=== PATIENT | female | born 1950 | race Caucasian/White ===

== ENCOUNTER 2020-06-22 14:21 | IRF | payer MEDICARE, MEDICAID, SELFPAY ==
--- NOTE | ~2020-06-22 | XR_ITS ---
EXAMINATION: XR barium swallow modified DATE: 07/01/2020 15:31 INDICATION: Dysphagia. TECHNIQUE: The patient was given barium-containing material of multiple consistencies to swallow by nba barrera speech pathologist while I performed fluoroscopy. Dose-area product was 2.965 Gy-cm2. 1.5 minutes fluoroscopy time FINDINGS: Oral Stage: Within functional limits Pharyngeal Phase: Laryngeal penetration with 3 mm thin liquid. Mild silent aspiration, no cough resp onse. Cervical/Esophageal Stage: Within functional limits IMPRESSION: Modified esophagram findings as above. Please refer to the speech [facility]. Reviewed, dictated and finalized at [facility]. Reviewed, dictated and finalized at [facility]. IMPRESSION: Modified esophagram findings as above. Please refer to the speech t herapy report for specific recommendations.
[2020-06-22 14:21] VITALS: BP 137/60; PULSE 90; RESP 20; TEMP 36.8; O2SAT 94
--- NOTE | 2020-06-22 14:47 | PC.NURSE ---
This patient, Maryjane Iglesias, was admitted to [facility] Room 224-02. Patient/family oriented to hospital policies and general routines including ID bracelet, bed and alarms, visiting hours, pain management, procedures, bathroom and other care routines, personal items, smoking policy, room service/diet, and visiting hours. Valuables list has been completed. Information on how to activate the Rapid Response Team has been discussed. Patient/Family are encouraged to report perceived risks to care and to ask questions if they do not understand what they are told or what they should do.
[2020-06-22] MEDS: dilTIAZem HCL TAB 30 MG, dilTIAZem HCL TAB 60 MG 90 MG PO ×2 (17:43→20:43)
[2020-06-22] MEDS: ATORVASTATIN 20 MG TABLET PO (20:43)
[2020-06-22 22:00] VITALS: BP 135/54; PULSE 94; RESP 16; TEMP 36.1; O2SAT 96
[2020-06-23] VITALS (13 sets, daily range): BP systolic 112–146; BP diastolic 43–64; PULSE 74–102; RESP 16–20; TEMP 36.2–36.7; O2SAT 96–100
[2020-06-23 01:13] LABS: Add Urine Microscopic? YES; Appearance Urine Clear (Clear); Bacteria Urine Trace /hpf; Bilirubin Urine Negative (Negative); Blood Urine 2+ (Negative); Color Urine Yellow (Yellow); Glucose Urine UA Negative (Negative); Ketones Urine Negative (Negative); Leukocyte Esterase Ur Negative LEU/UL (Negative); Mucus Urine Rare /lpf; Nitrate Urine Negative (Negative); Protein Urine 1+ mg/dL (Negative); RBC Urine >75 /hpf (0-2); Specific Grav Ur 1.014 (1.001-1.035); Urobilinogen Urine Negative mg/dL (<2.0)
[2020-06-23 05:43] LABS: Basophils Percent Auto 0.6 % (0.2-1.2); Eosinophils Absolute Auto 0.3 K/mm3 (0-0.3); Eosinophils Percent Auto 5.3 % (0-4.4); Hematocrit 22.9 % (37.0-47.0); Immature Granulocyte Absolute 0.04 K/mm3 (0.00-0.031); Immature Granulocyte Percent A 0.6 % (0-0.5); Lymphocytes Absolute Auto 0.97 K/mm3 (0.9-3.2); Lymphocytes Percent Auto 15.6 % (18.3-44.2); Mean Corpuscular HGB Conc 30.1 g/dl (32-36); Mean Corpuscular Volume 79.5 fl (80-100); Mean Platelet Volume 10.5 fl (7.4-10.4); Monocytes Absolute Auto 0.5 K/mm3 (0.1-0.6); Neutrophils Absolute Auto 4.4 K/mm3 (1.3-6.7); Neutrophils Percent Auto 69.9 % (45.5-73.1); Platelet Count Result 563 k/mm3 (150-375); Red Blood Count 2.88 M/mm3 (4.2-5.4); White Blood Count 6.2 K/mm3 (4.5-10.0)
[2020-06-23 05:57] LABS: Potassium 3.5 mmol/L (3.4-5.0)
[2020-06-23 06:00] LABS: Anion Gap 4 mmol/L (8-16); Blood Urea Nitrogen 11 mg/dL (7-17); Calcium 8.5 mg/dL (8.4-10.2); Carbon Dioxide 32 mmol/L (22-30); Chloride 100 mmol/L (98-107); Cholesterol 106 mg/dL (0-200); Estimated Glomerular Filt Rate > 60; Glucose 98 mg/dL (65-105); HDL Direct 41 mg/dL; Sodium 136 mmol/L (137-145); Triglycerides 76 mg/dL (<150)
[2020-06-23 06:03] LABS: Hemoglobin 6.9 g/dL (12.0-15.0)
[2020-06-23 06:09] LABS: LDL Cholesterol Direct 43 mg/dL
[2020-06-23] MEDS: ACIDOPHILUS/BULGARICUS CHEWABLE TABLET 1 TABLET PO (09:54)
[2020-06-23] MEDS: PANTOPRAZOLE 40 MG TABLET PO (09:54)
[2020-06-23] MEDS: dilTIAZem HCL TAB 30 MG, dilTIAZem HCL TAB 60 MG 90 MG PO ×4 (09:55→21:06)
--- NOTE | 2020-06-23 10:32 | WPDREHABHP ---
H&P: HPI History of Present Illness Date/Time: 06/23/20 10:32 Chief complaint: CVA Narrative: Maryjane Iglesias is a 70 year old femaleHISTORY OF PRESENT ILLNESS: The patient's primary rehab impairment category is Stroke[] The etiologic diagnosis is acute left MCA ischemic stroke [] I saw this patient [id number] on on June 23, 2020 at 9:00 a.m.[] The patient is a 70 years old female with a past medical history of recent stroke in November of 2019, hypertension, hyperlipidemia, COPD, and GI angiodysplasia ES who presented to [facility] Emergency Room on June 09, 2020 with dysarthria, right-sided weakness, and right-sided facial droop. The patient's granddaughter found her at 10:15 a.m. on June 09, 2020 EMS was contacted and she was taken to [facility] in the emergency department her NIHSS was 15 CT scan of the head demonstrated mg at M2 bifurcation hyper density as well as a left insular hypodensity with positive low-lying cerebellar tonsils. No bleed. CTA revealed occlusion of the left middle cerebral artery bifurcation. Patient did not receive tPA as her last known well was October 13, 2030 on June 08, 2020. A thrombectomy was performed during which a left GA occlusion was identified and thrombectomy was successful after 3 passes PT 1 C1-2 see flow. TTE with an ejection fraction of 58%, no shunt or thrombus. Patient patient had a loop recorder placed on discharge. The patient was given ticagrelor x2 and then decision was made to proceed only with aspirin 81 mg daily due to previous GI bleed. 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 On June 17, 2020 a capsule old study was performed. On June 20, 2020 a single balloon and toes copy was performed and showed a normal esophagus, stomach, and duodenum, as well as, multiple recently bleeding inject aces in the jejunum that were treated with our gone beam coagulation and hemostatic clip was placed. Gastroenterology signed off. Patient developed a urinary tract infection was placed on ceftriaxone completed on June 20, 2020. The patient outpatient computer engineering technologist was consulted regarding her hypogammaglobulinemia and IV Ig was discontinued as it is a possible contributor to stroke. Physical examination continues to reveal decreased gross motor control, impaired balance, decreased safety awareness, and right-sided weakness. She will not discharge on anticoagulation other than aspirin due to her GI bleed. The patient has not traveled outside the [place] or had contact with someone who is ill that is travel outside the [place] in the past 21 days. The patient has not traveled to an area of the [place] that experiencing known transmission of the Coronavirus and has not had close personal contact with anyone that has. The patient does not have a fever. The patient experience possible aspiration pneumonia during her modified barium swallow she completed antibiotics for this and was tested for COVID-19 on June 09, 2020 and the results were negative. Therapy was initiated at the acute care facility and the patient transferred to us from from [facility] on June 21, 2020. The patient has had major surgeries in the 100 days prior to admission. The had falls in the past year. The patient had [no] falls with injury in the past year. PAST MEDICAL HISTORY: Hypertension, hyperlipidemia, GI angiodysplasia as, prior stroke with residual right-sided weakness, COPD, and hypogammaglobulinemia. Lives with son. PAST SURGICAL HISTORY: Five endoscopic scopes in the last 5 months for recurrent GI bleeds, cauterized action of GI bleed, and clot removal during this hospitalization. Social history the patient lives in a 2 story home with her son there are 4 steps to enter patient's bedroom and bathroom is on the main level. Son does the la
[2020-06-23] MEDS: ATORVASTATIN 20 MG TABLET PO (21:07)
[2020-06-24 06:00] VITALS: BP 121/51; PULSE 79; RESP 20; TEMP 36.8; O2SAT 100
[2020-06-24] MEDS: ACIDOPHILUS/BULGARICUS CHEWABLE TABLET 1 TABLET PO (09:37)
[2020-06-24] MEDS: PANTOPRAZOLE 40 MG TABLET PO (09:38)
[2020-06-24] MEDS: dilTIAZem HCL TAB 30 MG, dilTIAZem HCL TAB 60 MG 90 MG PO ×4 (09:38→20:40)
[2020-06-24 10:59] VITALS: O2SAT 92
[2020-06-24 12:18] LABS: Hematocrit 36.1 % (37.0-47.0); Hemoglobin 11.3 g/dL (12.0-15.0)
[2020-06-24 14:00] VITALS: BP 134/53; PULSE 82; RESP 16; TEMP 36.4; O2SAT 98
--- NOTE | 2020-06-24 14:58 | WPDNEURORHBP ---
Subjective Date/time seen: 06/24/20 14:58 Interval history: this 70-year-old is here after having had the left MCA ischemic stroke receiving speech PT OT and gait training she also has significant history of having had GI bleed the underlying cause being AVM of the GI tract and that is why she is not on any anticoagulation she had to get 2 units of packed RBCs here and if need arises and if need arises the knee may have to consult our leaf size picker here. 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 Review of Systems Review of Systems: All systems reviewed & are unremarkable except as noted in HPI and below Functional Status Ambulation Ability Ability to Ambulate 10 Feet: Minimum Assistance X 1 Ambulation Assistive Devices: Hand Hold Transfers Ability Ability to Transfer In/Out of Chair: Minimum Assistance X 1 Exam Const: General: comfortable and no acute distress HENMT: General nose exam: Normal nares present Mouth: Yes moist mucous membranes Eyes: General: appearance normal, both eyes and all related structures Neck: Neck: supple and no JVD Resp: Effort & Inspection: normal respiratory effort Auscultation: clear to auscultation bilaterally Cardio: Rate: regular rate Rhythm: regular rhythm GI: GI Palp: Yes Soft to palpation Auscultation: normal bowel sounds Skin: General skin exam: normal color and no rashes or lesions noted Neuro: Other: the patient is awake alert has a slow whispering voice with aphasia and right-sided hemiparesis does not seem to be any distress making progress still needing a plenty of assistance from the our rehab temp yesterday she received 2 units of packed RBCs and will check her hemoglobin hematocrit today Extrem: General: normal to inspection Psych: Mental Status: mental status grossly normal Objective Data Vital Signs Vital Signs: Vital Signs - 24 hr 06/23/20 15:29 06/23/20 16:29 06/23/20 17:18 Temperature 36.6 C 36.2 C L 36.4 C Pulse Rate 86 82 90 Respiratory Rate 18 16 18 Blood Pressure 135/63 136/58 L 132/55 L Pulse Oximetry 99 97 99 06/23/20 19:48 06/23/20 21:05 06/23/20 22:00 Temperature 36.6 C 36.6 C 36.2 C L Pulse Rate 83 79 86 Respiratory Rate 20 20 18 Blood Pressure 146/55 H 136/58 L 146/64 H Pulse Oximetry 96 99 97 06/23/20 22:05 06/23/20 23:05 06/24/20 06:00 Temperature 36.3 C L 36.4 C L 36.8 C Pulse Rate 76 74 79 Respiratory Rate 18 20 20 Blood Pressure 125/46 L 126/57 L 121/51 L Pulse Oximetry 97 100 100 06/24/20 10:59 06/24/20 14:00 Temperature 36.4 C Pulse Rate 82 Respiratory Rate 16 Blood Pressure 134/53 L Pulse Oximetry 92 98 Intake/Output Intake/Output: Intake & Output 06/21/20 06/22/20 06/23/20 06/24/20 23:59 23:59 23:59 23:59 Intake Total 240 1070 720 Output Total 1700 Balance 240 1070 -980 Meds/Results Medications: Active Medications Generic Name Dose Route Start Last Admin Trade Name Freq PRN Reason Stop Dose Admin Acetaminophen 650 mg 06/24/20 14:10 Tylenol Tablet PO Q4-6H PRN Mild Pain (1-3) or Fever Albuterol 2 puff 06/22/20 15:34 Proventil Hfa INHALATION QID PRN Wheezing Alprazolam 0.5 mg 06/22/20 15:34 Xanax PO BID PRN Anxiety Atorvastatin Calcium 20 mg 06/22/20 21:00 06/23/20 21:07 Lipitor PO 20 mg HS JOSEPH Administration Budesonide/Formoterol Fumarate 2 puff 06/23/20 20:00 06/24/20 10:34 Symbicort 160-4.5 Mcg (*Sp) Inhaler INHALATION Not Given Q12HRT [facility] Diltiazem HCl 30 mg/ Diltiazem 90 mg 06/22/20 17:00 06/24/20 14:00 HCl 60 mg PO 90 mg QID JOSEPH Administration Lactobacillus Acidophilus 1 tablet 06/23/20 09:00 06/24/20 09:37 Lactinex Chewable Tablet PO 1 tablet DAILY JOSEPH Administration Non-Formulary Medication 250 mcg 06/23/20 09:00 06/24/20
[2020-06-24] MEDS: ACETAMINOPHEN 325 MG TABLET 650 MG PO (15:02)
--- NOTE | 2020-06-24 15:11 | RPD ---
INDIVIDUALIZED PLAN OF CARE FOR Maryjane Werner Brief Synthesis of Pre-Admission Screen, Post-Admission Evaluation and Therapy Evaluations: The patient presents to rehab with an acute left MCA ischemic stroke. Comorbidities include hypertension, hyperlipidemia, chronic obstructive pulmonary disease, right-sided weakness, dysphagia, aphasia, GI bleed with GI andgiodysplasias, bilateral MCA occlusions, left M1 occlusion, status post thrombectomy, microcytic anemia, leukocytosis, abnormal TSH, and hypogammaglobulinemia. The complexity of the patient's medical management, nursing, and therapy needs require an inpatient rehab hospital stay with a physician-led interdisciplinary team approach. The patient?s needs will be best met in an intensive program vs. at a lower level of care. The patient requires physician services for neurology services, medical oversight, and coordination of care. 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 The patient requires nursing services for frequent neuro checks, anticoagulation therapy, medication management and education, pressure relief and skin care management, monitoring of labs, bowel and bladder training, and fall/safety precautions. Deficits include:ADLs, Balance, Cognition, Endurance, Family Training/Education, Mobility, Pain Management, ROM, Safety, Speech, Strength, Swallowing, and Transfers. Bartender Server/Case Management for: Discharge Planning and Patient/Family Counseling Physical Therapy: 5 days per week for 75 minutes. Treatments may include: Therapeutic Exercise, Gait Training, Neuromuscular Re-education, Transfer Training, Community Reintegration, Bed Mobility, Patient/Family Education, Wheelchair Mobility Group Therapy/Concurrent Therapy Rationales: -Improve attention span during functional activities in a distracted environment. -Enhance problem solving and/or adequate judgment skills during functional activities in a distracted environment. -Promote increased safety awareness in a distracted environment to reduce fall risk with functional tasks, transfers, and ambulation to allow a more safe, self-sufficient return to the home environment. -Improve dynamic balance skills to promote safety and independence with functional activities in a distracted environment for maximum gain. Occupational Therapy: 5 days per week for 75 minutes. Treatments may include: Therapeutic Exercise, Therapeutic Activity, Cognitive Training, Self-Care Transfer Training, Community Reintegration, Home Management, Patient/Family Education, Wheelchair Mobility Training, Energy Conservation Training Group Therapy/Concurrent Therapy Rationales: -Allow therapist to observe and teach generalization and carry-over of skills learned in individual therapy. -Enhance problem solving and sequencing skills during therapeutic activities in a distracted environment. -Promote increased safety awareness in a realistic setting to reduce fall risk with functional tasks due to visual and verbal distractions. -Increase functional level with ADLs, ADL transfers and use of adaptive equipment through therapeutic activities with others while promoting safety to allow a more safe, self-sufficient return home. Speech Therapy: 5 days per week for 30 minutes. Treatments may include: Dysphasia Therapy, Speech/Language/Communication Therapy, Cognitive Training, Patient/Family Education Group Therapy/Concurrent Therapy - Rationale: -Allow therapist to observe and teach generalization and carry-over of skills learned in individual therapy. -Improve comprehension skills with complex or abstract ideas through discussion in a realistic setting. -Enhance problem solving skills with complex issues during activities in a distracted environment. -Promote increased
[2020-06-24] MEDS: ATORVASTATIN 20 MG TABLET PO (20:40)
[2020-06-24 21:07] VITALS: BP 119/48; PULSE 70; RESP 18; TEMP 36.3; O2SAT 99
[2020-06-24 21:32] VITALS: O2SAT 97
[2020-06-25 05:43] VITALS: BP 141/60; PULSE 79; RESP 18; TEMP 36.8; O2SAT 97
[2020-06-25 07:57] VITALS: O2SAT 97
[2020-06-25 08:00] VITALS: PULSE 86; RESP 18; O2SAT 97
[2020-06-25] MEDS: ACIDOPHILUS/BULGARICUS CHEWABLE TABLET 1 TABLET PO (08:37)
[2020-06-25] MEDS: PANTOPRAZOLE 40 MG TABLET PO (08:38)
[2020-06-25] MEDS: dilTIAZem HCL TAB 30 MG, dilTIAZem HCL TAB 60 MG 90 MG PO ×4 (08:38→20:42)
[2020-06-25 14:00] VITALS: BP 128/50; PULSE 87; RESP 18; TEMP 36.7; O2SAT 97
--- NOTE | 2020-06-25 15:15 | WPDNEURORHBP ---
Subjective Date/time seen: 06/25/20 15:15 Interval history: this 70-year-old woman is here post stroke of the left middle cerebral artery distribution with right-sided deficit right-sided visual field defect a right-sided hemiparesis where the lower extremities much more involved than the upper extremity she denies any headache nausea vomiting chest pain or shortness of breath she has combined aphasia however able to understand a to a certain extent and trying to express herself Review of Systems Review of Systems: All systems reviewed & are unremarkable except as noted in HPI and below Functional Status Ambulation Ability Ability to Ambulate 10 Feet: Minimum Assistance X 1 Ambulation Assistive Devices: None Transfers Ability Ability to Transfer In/Out of Chair: Minimum Assistance X 1 Exam Const: General: comfortable and no acute distress HENMT: General nose exam: Normal nares present Mouth: Yes moist mucous membranes Eyes: General: appearance normal, both eyes and all related structures Neck: Neck: supple and no JVD Resp: Effort & Inspection: normal respiratory effort Auscultation: clear to auscultation bilaterally Cardio: Rate: regular rate Rhythm: regular rhythm GI: GI Palp: Yes Soft to palpation Auscultation: normal bowel sounds Urinary Catheter: Urinary Catheter: patent and draining Skin: General skin exam: normal color and no rashes or lesions noted Neuro: Other: patient has makes aphasia and right-sided hemiparesis Extrem: General: normal to inspection Psych: Other: difficult to assess because of the speech defect however she does not have any anxious affect she is not sad she is not belligerent and she is not hostile Objective Data Vital Signs Vital Signs: Vital Signs - 24 hr 06/24/20 21:07 06/24/20 21:32 06/25/20 05:43 Temperature 36.3 C L 36.8 C Pulse Rate 70 79 Respiratory Rate 18 18 Blood Pressure 119/48 L 141/60 H Pulse Oximetry 99 97 97 06/25/20 07:57 Temperature Pulse Rate Respiratory Rate Blood Pressure Pulse Oximetry 97 Intake/Output Intake/Output: Intake & Output 06/22/20 06/23/20 06/24/20 06/25/20 23:59 23:59 23:59 23:59 Intake Total 240 1070 2080 500 Output Total 2475 1700 Balance 240 1070 -395 -1200 Meds/Results Medications: Active Medications Generic Name Dose Route Start Last Admin Trade Name Freq PRN Reason Stop Dose Admin Acetaminophen 650 mg 06/24/20 14:10 06/24/20 15:02 Tylenol Tablet PO 650 mg Q4-6H PRN Administration Mild Pain (1-3) or Fever Albuterol 2 puff 06/22/20 15:34 Proventil Hfa INHALATION QID PRN Wheezing Alprazolam 0.5 mg 06/22/20 15:34 Xanax PO BID PRN Anxiety Atorvastatin Calcium 20 mg 06/22/20 21:00 06/24/20 20:40 Lipitor PO 20 mg HS JOSEPH Administration Budesonide/Formoterol Fumarate 2 puff 06/23/20 20:00 06/25/20 07:53 Symbicort 160-4.5 Mcg (*Sp) Inhaler INHALATION 2 puff Q12HRT JOSEPH Administration Diltiazem HCl 30 mg/ Diltiazem 90 mg 06/22/20 17:00 06/25/20 12:36 HCl 60 mg PO 90 mg QID JOSEPH Administration Lactobacillus Acidophilus 1 tablet 06/23/20 09:00 06/25/20 08:37 Lactinex Chewable Tablet PO 1 tablet DAILY JOSEPH Administration Non-Formulary Medication 250 mcg 06/23/20 09:00 06/25/20 08:40 Roflumilast PO 07/23/20 09:01 250 mcg DAILY JOSEPH Administration Pantoprazole Sodium 40 mg 06/23/20 09:00 06/25/20 08:38 Protonix PO 40 mg QAM JOSEPH Administration Tiotropium [place] 1 cap 06/23/20 09:00 06/25/20 07:54 Spiriva INHALATION 1 cap DAILY JOSEPH Administration Progress Note: A&P Assessment and Plan (1) Hypogammaglobulinemia: Code(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 K55.20 - Angiodysplasia of colon without hemorrhage Status: Acute (3) GI bleed: Code(s): K92.2 -
[2020-06-25] MEDS: ALPRAZolam 0.5 MG TABLET PO (18:08)
[2020-06-25] MEDS: ACETAMINOPHEN 325 MG TABLET 650 MG PO (18:09)
[2020-06-25 20:29] VITALS: O2SAT 93
[2020-06-25 20:40] VITALS: BP 142/52; PULSE 87; RESP 20; TEMP 36.4; O2SAT 95
[2020-06-25] MEDS: ATORVASTATIN 20 MG TABLET PO (20:42)
[2020-06-26 05:17] VITALS: BP 151/40; PULSE 77; RESP 18; TEMP 36.2; O2SAT 100
[2020-06-26] MEDS: dilTIAZem HCL TAB 30 MG, dilTIAZem HCL TAB 60 MG 90 MG PO ×3 (08:55→20:17)
[2020-06-26] MEDS: ACIDOPHILUS/BULGARICUS CHEWABLE TABLET 1 TABLET PO (08:55)
[2020-06-26] MEDS: PANTOPRAZOLE 40 MG TABLET PO (08:56)
[2020-06-26 14:00] VITALS: BP 147/57; PULSE 80; RESP 18; TEMP 36.6; O2SAT 96
[2020-06-26 14:08] VITALS: BMI 20.5
--- NOTE | 2020-06-26 14:09 | PCNFU ---
Nutrition Follow-Up Complete: Difficulty swallowing related to CVA as evidenced by need for pureed diet, level 2 liquids. GOAL: Patient to consume 75% of meals or greater. Patient is meeting goal with 100% meal consumption. Patient reports good appetite and did not have any diet related concerns. Pt current nutrition is Regular/Minced and Moist Level 5/Thickened Liquids Level 3. Nutrition recommendation: Agree with current recommendations Last recorded weight is 47.627 kg. Bowel Motility: last bowel movement reported on 06/25/20 Labs Reviewed: Hgb (11.3) Hct (36.1) Meds Noted: Dilitiazem, Symbicort, Lactinex, Protonix, Proventil, Xanax, Lipitor Additional Notes: Skin is WNL Follow up in 5 days.
[2020-06-26 14:16] VITALS: BMI 20.5
--- NOTE | 2020-06-26 14:31 | PCNSR ---
On 06/26/20, the student, Flynn Williamson, provided care and completed [facility] documentation on this patient. I have reviewed the student's documentation and agree with the findings.
[2020-06-26 20:10] VITALS: BP 130/47; PULSE 90; RESP 18; TEMP 36.5; O2SAT 94
[2020-06-26] MEDS: ATORVASTATIN 20 MG TABLET PO (20:18)
[2020-06-26 21:13] VITALS: O2SAT 94
[2020-06-27 05:10] VITALS: BP 143/49; PULSE 83; RESP 18; TEMP 36.2; O2SAT 98
[2020-06-27] MEDS: dilTIAZem HCL TAB 30 MG, dilTIAZem HCL TAB 60 MG 90 MG PO ×4 (10:02→20:31)
[2020-06-27] MEDS: ACIDOPHILUS/BULGARICUS CHEWABLE TABLET 1 TABLET PO (10:03)
[2020-06-27] MEDS: PANTOPRAZOLE 40 MG TABLET PO (10:03)
[2020-06-27] MEDS: ACETAMINOPHEN 325 MG TABLET 650 MG PO (12:37)
[2020-06-27 14:00] VITALS: BP 136/55; PULSE 85; RESP 20; TEMP 36.7; O2SAT 96
--- NOTE | 2020-06-27 15:39 | WPDNEURORHBP ---
Subjective Date/time seen: 06/27/20 15:39 Interval history: this 70-year-old woman is here due to stroke affecting the left cerebral hemisphere with aphasia and right-sided hemiparesis from which she is improving overall able to follow commands denies any headache nausea vomiting chest pain or shortness of breath or fever chills sore throat Review of Systems Review of Systems: All systems reviewed & are unremarkable except as noted in HPI and below Constitutional: Constitutional: Reports as per HPI and Reports no additional constitutional complaints Functional Status Ambulation Ability Ability to Ambulate 10 Feet: Contact Guard Ability to Ambulate 50 Feet With 2 Turns: Contact Guard Ambulation Assistive Devices: Hand Hold Transfers Ability Ability to Transfer In/Out of Chair: Minimum Assistance X 1 Exam Const: General: comfortable and no acute distress HENMT: General nose exam: Normal nares present Mouth: Yes moist mucous membranes Eyes: General: appearance normal, both eyes and all related structures Neck: Neck: supple and no JVD Resp: Effort & Inspection: normal respiratory effort Auscultation: clear to auscultation bilaterally Cardio: Rate: regular rate GI: GI Palp: Yes Soft to palpation Skin: General skin exam: normal color and no rashes or lesions noted Neuro: Other: patient is awake and alert well oriented with improving aphasia and right-sided hemiparesis Extrem: General: normal to inspection Psych: Mental Status: mental status grossly normal Objective Data Vital Signs Vital Signs: Vital Signs - 24 hr 06/26/20 20:10 06/26/20 21:13 06/27/20 05:10 Temperature 36.5 C 36.2 C L Pulse Rate 90 83 Respiratory Rate 18 18 Blood Pressure 130/47 L 143/49 H Pulse Oximetry 94 94 98 06/27/20 14:00 Temperature 36.7 C Pulse Rate 85 Respiratory Rate 20 Blood Pressure 136/55 L Pulse Oximetry 96 Intake/Output Intake/Output: Intake & Output 06/24/20 06/25/20 06/26/20 06/27/20 23:59 23:59 23:59 23:59 Intake Total 8910 740 960 480 Output Total 6895 1700 600 Balance -395 -960 360 480 Meds/Results Medications: Active Medications Generic Name Dose Route Start Last Admin Trade Name Freq PRN Reason Stop Dose Admin Acetaminophen 650 mg 06/24/20 14:10 06/27/20 12:37 Tylenol Tablet PO 650 mg Q4-6H PRN Administration Mild Pain (1-3) or Fever Albuterol 2 puff 06/22/20 15:34 Proventil Hfa INHALATION QID PRN Wheezing Alprazolam 0.5 mg 06/22/20 15:34 06/25/20 18:08 Xanax PO 0.5 mg BID PRN Administration Anxiety Atorvastatin Calcium 20 mg 06/22/20 21:00 06/26/20 20:18 Lipitor PO 20 mg HS JOSEPH Administration Budesonide/Formoterol Fumarate 2 puff 06/23/20 20:00 06/27/20 09:50 Symbicort 160-4.5 Mcg (*Sp) Inhaler INHALATION 2 puff Q12HRT JOSEPH Administration Diltiazem HCl 30 mg/ Diltiazem 90 mg 06/22/20 17:00 06/27/20 12:38 HCl 60 mg PO 90 mg QID JOSEPH Administration Lactobacillus Acidophilus 1 tablet 06/23/20 09:00 06/27/20 10:03 Lactinex Chewable Tablet PO 1 tablet DAILY JOSEPH Administration Non-Formulary Medication 250 mcg 06/23/20 09:00 06/27/20 10:03 Roflumilast PO 07/23/20 09:01 250 mcg DAILY JOSEPH Administration Pantoprazole Sodium 40 mg 06/23/20 09:00 06/27/20 10:03 Protonix PO 40 mg QAM JOSEPH Administration Tiotropium [place] 1 cap 06/23/20 09:00 06/27/20 09:50 Spiriva INHALATION 1 cap DAILY JOSEPH Administration Progress Note: A&P Assessment and Plan (1) 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(s): G81.91 - Hemiplegia,
[2020-06-27] MEDS: ALPRAZolam 0.5 MG TABLET PO (20:30)
[2020-06-27] MEDS: ATORVASTATIN 20 MG TABLET PO (20:31)
[2020-06-27 22:00] VITALS: BP 137/52; PULSE 78; RESP 20; TEMP 36.8; O2SAT 94
[2020-06-28 06:00] VITALS: BP 133/60; PULSE 81; RESP 18; TEMP 36.3; O2SAT 94
[2020-06-28] MEDS: dilTIAZem HCL TAB 30 MG, dilTIAZem HCL TAB 60 MG 90 MG PO ×4 (08:01→20:27)
[2020-06-28] MEDS: ACIDOPHILUS/BULGARICUS CHEWABLE TABLET 1 TABLET PO (08:02)
[2020-06-28] MEDS: PANTOPRAZOLE 40 MG TABLET PO (08:02)
[2020-06-28 08:40] VITALS: O2SAT 95
[2020-06-28] MEDS: ACETAMINOPHEN 325 MG TABLET 650 MG PO ×2 (13:36→20:25)
[2020-06-28 14:00] VITALS: BP 134/55; PULSE 91; RESP 18; TEMP 37.2; O2SAT 95
--- NOTE | 2020-06-28 18:32 | WPDNEURORHBP ---
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 and in fact that is improving also she denies any headache nausea vomiting chest pain shortness of breath fever chills sore throat Review of Systems Review of Systems: All systems reviewed & are unremarkable except as noted in HPI and below Functional Status Ambulation Ability Ability to Ambulate 10 Feet: Minimum Assistance X 1 Ability to Ambulate 50 Feet With 2 Turns: Minimum Assistance X 1 Ability to Ambulate 150 Feet: Minimum Assistance X 1 Ambulation Assistive Devices: Hand Hold Transfers Ability Ability to Transfer In/Out of Chair: Contact Guard Exam Const: General: comfortable and no acute distress HENMT: General nose exam: Normal nares present Mouth: Yes moist mucous membranes Eyes: General: appearance normal, both eyes and all related structures Neck: Neck: supple and no JVD Resp: Effort & Inspection: normal respiratory effort Auscultation: clear to auscultation bilaterally Cardio: Rate: regular rate Rhythm: regular rhythm GI: GI Palp: Yes Soft to palpation Auscultation: normal bowel sounds Skin: General skin exam: normal color and no rashes or lesions noted Neuro: Other: aphasia and right-sided hemiparesis is improved Extrem: General: normal to inspection Psych: Mental Status: mental status grossly normal Objective Data Vital Signs Vital Signs: Vital Signs - 24 hr 06/27/20 22:00 06/28/20 06:00 06/28/20 08:40 Temperature 36.8 C 36.3 C L Pulse Rate 78 81 Respiratory Rate 20 18 Blood Pressure 137/52 L 133/60 Pulse Oximetry 94 94 95 06/28/20 14:00 Temperature 37.2 C Pulse Rate 91 Respiratory Rate 18 Blood Pressure 134/55 L Pulse Oximetry 95 Intake/Output Intake/Output: Intake & Output 06/25/20 06/26/20 06/27/20 06/28/20 23:59 23:59 23:59 23:59 Intake Total 740 960 720 960 Output Total 5182 579 6840 Balance -960 360 -530 960 Meds/Results Medications: Active Medications Generic Name Dose Route Start Last Admin Trade Name Freq PRN Reason Stop Dose Admin Acetaminophen 650 mg 06/24/20 14:10 06/28/20 13:36 Tylenol Tablet PO 650 mg Q4-6H PRN Administration Mild Pain (1-3) or Fever Albuterol 2 puff 06/22/20 15:34 Proventil Hfa INHALATION QID PRN Wheezing Alprazolam 0.5 mg 06/22/20 15:34 06/27/20 20:30 Xanax PO 0.5 mg BID PRN Administration Anxiety Atorvastatin Calcium 20 mg 06/22/20 21:00 06/27/20 20:31 Lipitor PO 20 mg HS JOSEPH Administration Budesonide/Formoterol Fumarate 2 puff 06/23/20 20:00 06/28/20 08:40 Symbicort 160-4.5 Mcg (*Sp) Inhaler INHALATION 2 puff Q12HRT JOSEPH Administration Diltiazem HCl 30 mg/ Diltiazem 90 mg 06/22/20 17:00 06/28/20 17:42 HCl 60 mg PO 90 mg QID JOSEPH Administration Lactobacillus Acidophilus 1 tablet 06/23/20 09:00 06/28/20 08:02 Lactinex Chewable Tablet PO 1 tablet DAILY JOSEPH Administration Non-Formulary Medication 250 mcg 06/23/20 09:00 06/28/20 08:02 Roflumilast PO 07/23/20 09:01 250 mcg DAILY JOSEPH Administration Pantoprazole Sodium 40 mg 06/23/20 09:00 06/28/20 08:02 Protonix PO 40 mg QAM JOSEPH Administration Tiotropium [place] 1 cap 06/23/20 09:00 06/28/20 08:40 Spiriva INHALATION 1 cap DAILY JOSEPH Administration Progress Note: A&P Assessment and Plan (1) 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
[2020-06-28 20:05] VITALS: PULSE 89; O2SAT 96
[2020-06-28] MEDS: ATORVASTATIN 20 MG TABLET PO (20:25)
[2020-06-28] MEDS: ALPRAZolam 0.5 MG TABLET PO (20:27)
[2020-06-28 22:00] VITALS: BP 130/52; PULSE 89; RESP 20; TEMP 36.9; O2SAT 97
[2020-06-29 06:00] VITALS: BP 124/57; PULSE 70; RESP 18; TEMP 36.7; O2SAT 99
[2020-06-29 08:21] VITALS: O2SAT 92
[2020-06-29] MEDS: dilTIAZem HCL TAB 30 MG, dilTIAZem HCL TAB 60 MG 90 MG PO ×4 (08:31→20:11)
[2020-06-29] MEDS: ACIDOPHILUS/BULGARICUS CHEWABLE TABLET 1 TABLET PO (08:31)
[2020-06-29] MEDS: PANTOPRAZOLE 40 MG TABLET PO (08:31)
[2020-06-29] MEDS: ACETAMINOPHEN 325 MG TABLET 650 MG PO (12:45)
[2020-06-29 14:00] VITALS: BP 115/46; PULSE 88; RESP 20; TEMP 36.4; O2SAT 94
[2020-06-29 19:04] VITALS: O2SAT 93
[2020-06-29] MEDS: ATORVASTATIN 20 MG TABLET PO (20:11)
[2020-06-29 22:00] VITALS: BP 123/43; PULSE 87; RESP 18; TEMP 36.7; O2SAT 95
[2020-06-30 04:52] LABS: Basophils Percent Auto 0.4 % (0.2-1.2); Eosinophils Absolute Auto 0.3 K/mm3 (0-0.3); Eosinophils Percent Auto 4.5 % (0-4.4); Hematocrit 32.6 % (37.0-47.0); Hemoglobin 9.7 g/dL (12.0-15.0); Immature Granulocyte Absolute 0.03 K/mm3 (0.00-0.031); Immature Granulocyte Percent A 0.4 % (0-0.5); Lymphocytes Absolute Auto 1.01 K/mm3 (0.9-3.2); Lymphocytes Percent Auto 13.7 % (18.3-44.2); Mean Corpuscular HGB Conc 29.8 g/dl (32-36); Mean Corpuscular Hemoglobin 25.3 pg (26-34); Mean Corpuscular Volume 84.9 fl (80-100); Mean Platelet Volume 11.3 fl (7.4-10.4); Monocytes Absolute Auto 0.5 K/mm3 (0.1-0.6); Monocytes Percent Auto 7.1 % (2.6-8.5); Neutrophils Absolute Auto 5.5 K/mm3 (1.3-6.7); Neutrophils Percent Auto 73.9 % (45.5-73.1); Platelet Count Result 506 k/mm3 (150-375); Red Blood Count 3.84 M/mm3 (4.2-5.4); Red Cell Distribution Width 17.4 % (11.5-14.5); White Blood Count 7.4 K/mm3 (4.5-10.0)
[2020-06-30 04:59] LABS: Anion Gap 5 mmol/L (8-16); Blood Urea Nitrogen 10 mg/dL (7-17); Calcium 8.8 mg/dL (8.4-10.2); Carbon Dioxide 31 mmol/L (22-30); Chloride 101 mmol/L (98-107); Estimated CRCL calculation 64 ml/min; Estimated Glomerular Filt Rate > 60; Glucose 92 mg/dL (65-105); Potassium 3.3 mmol/L (3.4-5.0); Sodium 137 mmol/L (137-145)
[2020-06-30 06:00] VITALS: BP 144/68; PULSE 72; RESP 18; TEMP 36.6; O2SAT 97
[2020-06-30 06:21] LABS: Hypochromasia 2+ (NORMAL); Ovalocytes 1+ (NORMAL); Platelet Estimate Increased (Adequate); Tear Drop Cells 1+ (NORMAL)
[2020-06-30] MEDS: PANTOPRAZOLE 40 MG TABLET PO (08:41)
[2020-06-30] MEDS: dilTIAZem HCL TAB 30 MG, dilTIAZem HCL TAB 60 MG 90 MG PO ×4 (08:41→19:34)
[2020-06-30] MEDS: ACIDOPHILUS/BULGARICUS CHEWABLE TABLET 1 TABLET PO (08:41)
--- NOTE | 2020-06-30 12:31 | WPDNEURORHBP ---
Subjective Date/time seen: 06/30/20 12:31 Interval history: this 70-year-old woman is here after having had a stroke or with significant improvement in her aphasia and right-sided hemiparesis she also has a history of AVM of the gastrointestinal tract in GI bleed that is why she is not on any anticoagulation she denies any headache nausea vomiting chest pain shortness of breath fever chills sore throat Review of Systems Review of Systems: All systems reviewed & are unremarkable except as noted in HPI and below Functional Status Ambulation Ability Ability to Ambulate 10 Feet: Minimum Assistance X 1 Ability to Ambulate 50 Feet With 2 Turns: Minimum Assistance X 1 Ability to Ambulate 150 Feet: Minimum Assistance X 1 Ambulation Assistive Devices: Cane, Small Base Quad and Hand Hold Transfers Ability Ability to Transfer In/Out of Chair: Contact Guard Exam Const: General: comfortable and no acute distress HENMT: General nose exam: Normal nares present Mouth: Yes moist mucous membranes Eyes: General: appearance normal, both eyes and all related structures Neck: Neck: supple and no JVD Resp: Effort & Inspection: normal respiratory effort Auscultation: clear to auscultation bilaterally Cardio: Rate: regular rate Rhythm: regular rhythm GI: GI Palp: Yes Soft to palpation Auscultation: normal bowel sounds Skin: General skin exam: normal color and no rashes or lesions noted Neuro: Other: the pay aphasia is improving right-sided hemiparesis is improved Extrem: General: normal to inspection Psych: Mental Status: mental status grossly normal Objective Data Vital Signs Vital Signs: Vital Signs - 24 hr 06/29/20 14:00 06/29/20 19:04 06/29/20 22:00 Temperature 36.4 C L 36.7 C Pulse Rate 88 87 Respiratory Rate 20 18 Blood Pressure 115/46 L 123/43 L Pulse Oximetry 94 93 95 06/30/20 06:00 Temperature 36.6 C Pulse Rate 72 Respiratory Rate 18 Blood Pressure 144/68 H Pulse Oximetry 97 Intake/Output Intake/Output: Intake & Output 06/27/20 06/28/20 06/29/20 06/30/20 23:59 23:59 23:59 23:59 Intake Total 720 960 720 800 Output Total 1250 Balance -530 960 720 800 Meds/Results Medications: Active Medications Generic Name Dose Route Start Last Admin Trade Name Freq PRN Reason Stop Dose Admin Acetaminophen 650 mg 06/24/20 14:10 06/29/20 12:45 Tylenol Tablet PO 650 mg Q4-6H PRN Administration Mild Pain (1-3) or Fever Albuterol 2 puff 06/22/20 15:34 Proventil Hfa INHALATION QID PRN Wheezing Alprazolam 0.5 mg 06/22/20 15:34 06/28/20 20:27 Xanax PO 0.5 mg BID PRN Administration Anxiety Atorvastatin Calcium 20 mg 06/22/20 21:00 06/29/20 20:11 Lipitor PO 20 mg HS JOSEPH Administration Budesonide/Formoterol Fumarate 2 puff 06/23/20 20:00 06/30/20 09:50 Symbicort 160-4.5 Mcg (*Sp) Inhaler INHALATION 2 puff Q12HRT JOSEPH Administration Diltiazem HCl 30 mg/ Diltiazem 90 mg 06/22/20 17:00 06/30/20 08:41 HCl 60 mg PO 90 mg QID JOSEPH Administration Lactobacillus Acidophilus 1 tablet 06/23/20 09:00 06/30/20 08:41 Lactinex Chewable Tablet PO 1 tablet DAILY JOSEPH Administration Non-Formulary Medication 250 mcg 06/23/20 09:00 06/30/20 08:42 Roflumilast PO 07/23/20 09:01 250 mcg DAILY JOSEPH Administration Pantoprazole Sodium 40 mg 06/23/20 09:00 06/30/20 08:41 Protonix PO 40 mg QAM JOSEPH Administration Tiotropium [place] 1 cap 06/23/20 09:00 06/30/20 09:51 Spiriva INHALATION 1 cap DAILY JOSEPH Administration Labs Labs: Laboratory Results - last 24 hr 06/30/20 06/30/20 04:31 04:31 WBC 7.4 RBC 3.84 L Hgb 9.7 L Hct 32.6 L MCV 84.9 D MCH 25.3 L D MCHC 29.8 L RDW 17.4 H Plt Count 506 H MPV 11.3 H Immature Gran % (Auto) 0.4 Neut % (Auto) 73.9 H Lymph % (Auto) 13.7 L [place] % (Auto) 7.1 Eos % (Auto) 4.5 H Baso % (Auto) 0.4 Lymph # (Auto) 1.01 Mon
[2020-06-30] MEDS: ACETAMINOPHEN 325 MG TABLET 650 MG PO ×2 (13:12→22:32)
[2020-06-30 14:00] VITALS: BP 140/54; PULSE 93; RESP 18; TEMP 36.6; O2SAT 95
[2020-06-30] MEDS: ATORVASTATIN 20 MG TABLET PO (19:34)
[2020-06-30 22:00] VITALS: BP 152/54; PULSE 91; RESP 20; TEMP 36.6; O2SAT 94
[2020-07-01 06:00] VITALS: BP 143/55; PULSE 80; RESP 20; TEMP 36.4; O2SAT 94
[2020-07-01] MEDS: ACIDOPHILUS/BULGARICUS CHEWABLE TABLET 1 TABLET PO (08:42)
[2020-07-01] MEDS: dilTIAZem HCL TAB 30 MG, dilTIAZem HCL TAB 60 MG 90 MG PO ×4 (08:42→19:44)
[2020-07-01] MEDS: PANTOPRAZOLE 40 MG TABLET PO (08:43)
[2020-07-01 09:00] VITALS: PULSE 80; RESP 18; O2SAT 94
[2020-07-01 12:01] VITALS: TEMP 36.4
[2020-07-01] MEDS: ACETAMINOPHEN 325 MG TABLET 650 MG PO ×2 (12:01→18:04)
--- NOTE | 2020-07-01 12:20 | PCDIET ---
Nutrition Follow-Up Complete: Nutrition Diagnosis: Difficulty swallowing related to CVA as evidenced by need for pureed diet, level 2 liquids. Nutrition Goal: Patient to consume 75% of meals or greater. Goal met. Patient consuming 100% of most meals on minced and moist diet with level 3 liquids. Patient reports good appetite and denies c/o. Recommend re-checking potassium and replacing, if medically appropriate. Last recorded weight is 47.627 kg. Recommend obtaining new weight. Bowel Motility: Last BM on 06/30/20, per nursing flowsheet. Labs Reviewed: Hgb (9.7), Hct (32.6), Cr (0.5), K (3.3) Meds Noted: Albuterol, Symbicort, Lactinex, Protonix, Spiriva Additional Notes: No documented skin breakdown. Will continue to monitor with same goal. Nutrition Monitoring and Evaluation: Follow up in 7 days.
--- NOTE | 2020-07-01 13:19 | WPDNEURORHBP ---
Subjective Date/time seen: 07/01/20 13:19 Interval history: this 70-year-old is here after having had left hemispheric stroke she is revealing receiving PT OT speech and doing fairly well the case was discussed in the team conference and input was taken from all the therapies the patient denies any headache nausea vomiting chest pain shortness of breath fever chills sore throat Review of Systems Review of Systems: All systems reviewed & are unremarkable except as noted in HPI and below Functional Status Ambulation Ability Ability to Ambulate 10 Feet: Contact Guard Ability to Ambulate 50 Feet With 2 Turns: Contact Guard Ability to Ambulate 150 Feet: Minimum Assistance X 1 Ambulation Assistive Devices: Cane Transfers Ability Ability to Transfer In/Out of Chair: Contact Guard Exam Const: General: comfortable and no acute distress HENMT: General nose exam: Normal nares present Mouth: Yes moist mucous membranes Eyes: General: appearance normal, both eyes and all related structures Neck: Neck: supple and no JVD Resp: Effort & Inspection: normal respiratory effort Auscultation: clear to auscultation bilaterally Cardio: Rate: regular rate Rhythm: regular rhythm GI: GI Palp: Yes Soft to palpation Auscultation: normal bowel sounds Skin: General skin exam: normal color and no rashes or lesions noted Neuro: Other: the patient is awake and alert well oriented has improving aphasia her monotonous low volume dias predated the stroke continues to be so. Her weakness on the right side is also improving right upper extremity however is flaccid but she is able to walk with the with a walker fairly decent and GERD Extrem: General: normal to inspection Psych: Mental Status: mental status grossly normal Objective Data Vital Signs Vital Signs: Vital Signs - 24 hr 06/30/20 14:00 06/30/20 22:00 07/01/20 06:00 Temperature 36.6 C 36.6 C 36.4 C Pulse Rate 93 91 80 Respiratory Rate 18 20 20 Blood Pressure 140/54 L 152/54 H 143/55 H Pulse Oximetry 95 94 94 07/01/20 09:00 07/01/20 12:01 Temperature 36.4 C Pulse Rate 80 Respiratory Rate 18 Blood Pressure Pulse Oximetry 94 Intake/Output Intake/Output: Intake & Output 06/28/20 06/29/20 06/30/20 07/01/20 23:59 23:59 23:59 23:59 Intake Total 505 330 9636 360 Balance 936 353 2394 360 Meds/Results Medications: Active Medications Generic Name Dose Route Start Last Admin Trade Name Freq PRN Reason Stop Dose Admin Acetaminophen 650 mg 06/24/20 14:10 07/01/20 12:01 Tylenol Tablet PO 650 mg Q4-6H PRN Administration Mild Pain (1-3) or Fever Albuterol 2 puff 06/22/20 15:34 Proventil Hfa INHALATION QID PRN Wheezing Alprazolam 0.5 mg 06/22/20 15:34 06/28/20 20:27 Xanax PO 0.5 mg BID PRN Administration Anxiety Atorvastatin Calcium 20 mg 06/22/20 21:00 06/30/20 19:34 Lipitor PO 20 mg HS JOSEPH Administration Budesonide/Formoterol Fumarate 2 puff 06/23/20 20:00 07/01/20 09:51 Symbicort 160-4.5 Mcg (*Sp) Inhaler INHALATION 2 puff Q12HRT JOSEPH Administration Diltiazem HCl 30 mg/ Diltiazem 90 mg 06/22/20 17:00 07/01/20 12:02 HCl 60 mg PO 90 mg QID JOSEPH Administration Lactobacillus Acidophilus 1 tablet 06/23/20 09:00 07/01/20 08:42 Lactinex Chewable Tablet PO 1 tablet DAILY JOSEPH Administration Non-Formulary Medication 250 mcg 06/23/20 09:00 07/01/20 08:45 Roflumilast PO 07/23/20 09:01 250 mcg DAILY JOSEPH Administration Pantoprazole Sodium 40 mg 06/23/20 09:00 07/01/20 08:43 Protonix PO 40 mg QAM JOSEPH Administration Tiotropium [place] 1 cap 06/23/20 09:00 07/01/20 09:51 Spiriva INHALATION 1 cap DAILY JOSEPH Administration Progress Note: A&P Assessment and Plan (1) Hypogammaglobulinemia: Code(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
[2020-07-01 14:00] VITALS: BP 128/55; PULSE 86; RESP 16; TEMP 36.9; O2SAT 96
--- NOTE | 2020-07-01 15:46 | PCSTNOTE ---
Please refer to the Modified Barium Swallow Evaluation in the EMR.
[2020-07-01] MEDS: ALPRAZolam 0.5 MG TABLET PO (18:04)
[2020-07-01] MEDS: ATORVASTATIN 20 MG TABLET PO (19:44)
[2020-07-01 22:00] VITALS: BP 128/55; PULSE 86; RESP 16; TEMP 36.9; O2SAT 96
[2020-07-02 05:01] VITALS: BP 131/62; PULSE 78; RESP 20; TEMP 36.1; O2SAT 97
[2020-07-02] MEDS: dilTIAZem HCL TAB 30 MG, dilTIAZem HCL TAB 60 MG 90 MG PO ×4 (08:29→21:00)
[2020-07-02] MEDS: ACIDOPHILUS/BULGARICUS CHEWABLE TABLET 1 TABLET PO (08:29)
[2020-07-02] MEDS: PANTOPRAZOLE 40 MG TABLET PO (08:31)
--- NOTE | 2020-07-02 12:33 | WPDNEURORHBP ---
Subjective Date/time seen: 07/02/20 12:33 Interval history: this pleasant 70-year-old woman is here after having had stroke of the left cerebral hemisphere with right-sided hemiparesis with right upper extremities really flaccid but the leg is quite good and she is walking much better her speech is improving she is following all commands denies any headache nausea vomiting chest pain shortness of breath fever chills sore throat Review of Systems Review of Systems: All systems reviewed & are unremarkable except as noted in HPI and below Functional Status Ambulation Ability Ability to Ambulate 10 Feet: Contact Guard Ability to Ambulate 50 Feet With 2 Turns: Contact Guard Ability to Ambulate 150 Feet: Contact Guard Ambulation Assistive Devices: Cane Transfers Ability Ability to Transfer In/Out of Chair: Contact Guard Exam Const: General: comfortable and no acute distress HENMT: General nose exam: Normal nares present Mouth: Yes moist mucous membranes Eyes: General: appearance normal, both eyes and all related structures Neck: Neck: supple and no JVD Resp: Effort & Inspection: normal respiratory effort Auscultation: clear to auscultation bilaterally Cardio: Rate: regular rate Rhythm: regular rhythm GI: GI Palp: Yes Soft to palpation Auscultation: normal bowel sounds Skin: General skin exam: normal color and no rashes or lesions noted Neuro: Other: patient is walking much better aphasia is improved and she is making excellent progress apart from right upper extremity which remains flaccid Extrem: General: normal to inspection Psych: Mental Status: mental status grossly normal Objective Data Vital Signs Vital Signs: Vital Signs - 24 hr 07/01/20 14:00 07/01/20 22:00 07/02/20 05:01 Temperature 36.9 C 36.9 C 36.1 C L Pulse Rate 86 86 78 Respiratory Rate 16 16 20 Blood Pressure 128/55 L 128/55 L 131/62 Pulse Oximetry 96 96 97 Intake/Output Intake/Output: Intake & Output 06/29/20 06/30/20 07/01/20 07/02/20 23:59 23:59 23:59 23:59 Intake Total 720 1280 840 240 Balance 720 1280 840 240 Meds/Results Medications: Active Medications Generic Name Dose Route Start Last Admin Trade Name Freq PRN Reason Stop Dose Admin Acetaminophen 650 mg 06/24/20 14:10 07/01/20 18:04 Tylenol Tablet PO 650 mg Q4-6H PRN Administration Mild Pain (1-3) or Fever Albuterol 2 puff 06/22/20 15:34 Proventil Hfa INHALATION QID PRN Wheezing Alprazolam 0.5 mg 06/22/20 15:34 07/01/20 18:04 Xanax PO 0.5 mg BID PRN Administration Anxiety Atorvastatin Calcium 20 mg 06/22/20 21:00 07/01/20 19:44 Lipitor PO 20 mg HS JOSEPH Administration Budesonide/Formoterol Fumarate 2 puff 06/23/20 20:00 07/01/20 19:35 Symbicort 160-4.5 Mcg (*Sp) Inhaler INHALATION 2 puff Q12HRT JOSEPH Administration Diltiazem HCl 30 mg/ Diltiazem 90 mg 06/22/20 17:00 07/02/20 08:29 HCl 60 mg PO 90 mg QID JOSEPH Administration Lactobacillus Acidophilus 1 tablet 06/23/20 09:00 07/02/20 08:29 Lactinex Chewable Tablet PO 1 tablet DAILY JOSEPH Administration (Roflumilast 250 Mcg 250 mcg 06/23/20 09:00 07/02/20 08:31 ) Nonformulary Drug PO 07/23/20 09:01 250 mcg DAILY JOSEPH Administration Pantoprazole Sodium 40 mg 06/23/20 09:00 07/02/20 08:31 Protonix PO 40 mg QAM JOSEPH Administration Tiotropium [place] 1 cap 06/23/20 09:00 07/01/20 09:51 Spiriva INHALATION 1 cap DAILY JOSEPH Administration Radiology Results: ITS Impressions Modified Barium Swallow 07/01/20 15:58 IMPRESSION: Modified esophagram findings as above. Please refer to the speech therapy report for specific recommendations. 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
[2020-07-02 14:00] VITALS: BP 147/52; PULSE 81; RESP 20; TEMP 36.7; O2SAT 98
[2020-07-02] MEDS: ATORVASTATIN 20 MG TABLET PO (21:00)
[2020-07-02 21:37] VITALS: BP 131/60; PULSE 80; RESP 20; TEMP 36.6; O2SAT 95
[2020-07-02] MEDS: ACETAMINOPHEN 325 MG TABLET 650 MG PO (21:51)
[2020-07-03] VITALS (7 sets, daily range): BP systolic 128–134; BP diastolic 53–60; PULSE 68–95; RESP 18–20; TEMP 36.2–36.6; O2SAT 95–98
[2020-07-03] MEDS: ACIDOPHILUS/BULGARICUS CHEWABLE TABLET 1 TABLET PO (08:22)
[2020-07-03] MEDS: PANTOPRAZOLE 40 MG TABLET PO (08:22)
[2020-07-03] MEDS: dilTIAZem HCL TAB 30 MG, dilTIAZem HCL TAB 60 MG 90 MG PO ×4 (08:22→20:34)
[2020-07-03 10:27] LABS: Basophils Percent Auto 0.5 % (0.2-1.2); Eosinophils Absolute Auto 0.3 K/mm3 (0-0.3); Eosinophils Percent Auto 2.8 % (0-4.4); Hematocrit 34.8 % (37.0-47.0); Hemoglobin 10.4 g/dL (12.0-15.0); Immature Granulocyte Absolute 0.02 K/mm3 (0.00-0.031); Immature Granulocyte Percent A 0.2 % (0-0.5); Lymphocytes Absolute Auto 0.77 K/mm3 (0.9-3.2); Lymphocytes Percent Auto 8.7 % (18.3-44.2); Mean Corpuscular HGB Conc 29.9 g/dl (32-36); Mean Corpuscular Hemoglobin 25.2 pg (26-34); Mean Corpuscular Volume 84.3 fl (80-100); Mean Platelet Volume 11.4 fl (7.4-10.4); Monocytes Absolute Auto 0.5 K/mm3 (0.1-0.6); Monocytes Percent Auto 6.1 % (2.6-8.5); Neutrophils Absolute Auto 7.2 K/mm3 (1.3-6.7); Neutrophils Percent Auto 81.7 % (45.5-73.1); Platelet Count Result 524 k/mm3 (150-375); Red Blood Count 4.13 M/mm3 (4.2-5.4); Red Cell Distribution Width 17.2 % (11.5-14.5); White Blood Count 8.8 K/mm3 (4.5-10.0)
--- NOTE | 2020-07-03 10:33 | WPDNEURORHBP ---
Subjective Date/time seen: 07/03/20 10:33 Interval history: this 70-year-old woman is here after having had the left hemispheric stroke and also has AVM of the GI tract which precludes any kind of anticoagulation her hemoglobin is slowly dropping after receiving 3 units of packed RBCs RBCs in the previous several days she also relatively is hypokalemic so will order a stat lab work today otherwise she denies any headache nausea vomiting chest pain shortness of breath fever chills sore throat Review of Systems Review of Systems: All systems reviewed & are unremarkable except as noted in HPI and below Functional Status Ambulation Ability Ability to Ambulate 10 Feet: Contact Guard Ability to Ambulate 50 Feet With 2 Turns: Contact Guard Ability to Ambulate 150 Feet: Contact Guard Ambulation Assistive Devices: Cane Transfers Ability Ability to Transfer In/Out of Chair: Contact Guard Exam Const: General: comfortable and no acute distress HENMT: General nose exam: Normal nares present Mouth: Yes moist mucous membranes Eyes: General: appearance normal, both eyes and all related structures Neck: Neck: supple and no JVD Resp: Effort & Inspection: normal respiratory effort Auscultation: clear to auscultation bilaterally Cardio: Rate: regular rate Rhythm: regular rhythm GI: GI Palp: Yes Soft to palpation Auscultation: normal bowel sounds Skin: General skin exam: normal color and no rashes or lesions noted Neuro: Other: patient is awake alert well oriented not any distress apart from the 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 his her aphasia is improving and likewise the right hemiparesis where the right upper extremity is flaccid however the right lower extremities functioning much better and she is able to walk quite a bit of distance and has made strides Extrem: General: normal to inspection Psych: Mental Status: mental status grossly normal Objective Data Vital Signs Vital Signs: Vital Signs - 24 hr 07/02/20 14:00 07/02/20 21:37 07/03/20 05:51 Temperature 36.7 C 36.6 C 36.2 C L Pulse Rate 81 80 68 Respiratory Rate 20 20 18 Blood Pressure 147/52 H 131/60 134/60 Pulse Oximetry 98 95 95 Intake/Output Intake/Output: Intake & Output 06/30/20 07/01/20 07/02/20 07/03/20 23:59 23:59 23:59 23:59 Intake Total 1280 840 720 360 Balance 1280 840 720 360 Meds/Results Medications: Active Medications Generic Name Dose Route Start Last Admin Trade Name Freq PRN Reason Stop Dose Admin Acetaminophen 650 mg 06/24/20 14:10 07/02/20 21:51 Tylenol Tablet PO 650 mg Q4-6H PRN Administration Mild Pain (1-3) or Fever Albuterol 2 puff 06/22/20 15:34 Proventil Hfa INHALATION QID PRN Wheezing Alprazolam 0.5 mg 06/22/20 15:34 07/01/20 18:04 Xanax PO 0.5 mg BID PRN Administration Anxiety Atorvastatin Calcium 20 mg 06/22/20 21:00 07/02/20 21:00 Lipitor PO 20 mg HS JOSEPH Administration Budesonide/Formoterol Fumarate 2 puff 06/23/20 20:00 07/02/20 19:35 Symbicort 160-4.5 Mcg (*Sp) Inhaler INHALATION 2 puff Q12HRT JOSEPH Administration Diltiazem HCl 30 mg/ Diltiazem 90 mg 06/22/20 17:00 07/03/20 08:22 HCl 60 mg PO 90 mg QID JOSEPH Administration Lactobacillus Acidophilus 1 tablet 06/23/20 09:00 07/03/20 08:22 Lactinex Chewable Tablet PO 1 tablet DAILY JOSEPH Administration (Roflumilast 250 Mcg 250 mcg 06/23/20 09:00 07/03/20 08:23 ) Nonformulary Drug PO 07/23/20 09:01 250 mcg DAILY JOSEPH Administration Pantoprazole Sodium 40 mg 06/23/20 09:00 07/03/20 08:22 Protonix PO 40 mg QAM JOSEPH Administration Tiotropium [place] 1 cap 06/23/20 09:00 07/02/20 10:15 Spiriva INHALATION 1 cap DAILY JOSEPH Administration Radiology Results: ITS Impressions Modified Barium Swallow 07/01/20 15:58 IMPRESSION: Modified esophagram findings as above. Please refer to the speech therapy report for specific recommendations
[2020-07-03 10:42] LABS: Anion Gap 5 mmol/L (8-16); Blood Urea Nitrogen 14 mg/dL (7-17); Calcium 8.7 mg/dL (8.4-10.2); Carbon Dioxide 33 mmol/L (22-30); Chloride 103 mmol/L (98-107); Estimated CRCL calculation 64 ml/min; Estimated Glomerular Filt Rate > 60; Glucose 105 mg/dL (65-105); Potassium 3.5 mmol/L (3.4-5.0); Sodium 141 mmol/L (137-145)
[2020-07-03] MEDS: ACETAMINOPHEN 325 MG TABLET 650 MG PO ×2 (14:13→20:33)
[2020-07-03] MEDS: ALPRAZolam 0.5 MG TABLET PO (20:33)
[2020-07-03] MEDS: ATORVASTATIN 20 MG TABLET PO (20:34)
[2020-07-04 06:00] VITALS: BP 128/48; PULSE 85; RESP 20; TEMP 36.4; O2SAT 94
[2020-07-04 08:20] VITALS: O2SAT 95
[2020-07-04] MEDS: ACIDOPHILUS/BULGARICUS CHEWABLE TABLET 1 TABLET PO (08:36)
[2020-07-04] MEDS: dilTIAZem HCL TAB 30 MG, dilTIAZem HCL TAB 60 MG 90 MG PO ×4 (08:37→20:08)
[2020-07-04] MEDS: PANTOPRAZOLE 40 MG TABLET PO (08:37)
--- NOTE | 2020-07-04 11:56 | WPDNEURORHBP ---
Subjective Date/time seen: 07/04/20 11:56 Interval history: this 70-year-old woman is here after having had the left hemispheric stroke with improving aphasia her difficulty with the speech due to pharyngeal / laryngeal lab has been present before the stroke her aphasia however has improved and likewise the right-sided hemiparesis with the leg has improved significantly however the right arm is still relatively flaccid she is complaining of some small nodules at the lower part of her right upper arm which seems like a small lipomas is does not look like a hematoma or injury and these are nontender She denies any headache nausea vomiting chest pain shortness of breath fever chills sore throat Review of Systems Review of Systems: All systems reviewed & are unremarkable except as noted in HPI and below Functional Status Ambulation Ability Ability to Ambulate 10 Feet: Contact Guard Ability to Ambulate 50 Feet With 2 Turns: Contact Guard Ability to Ambulate 150 Feet: Contact Guard Ambulation Assistive Devices: Cane Transfers Ability Ability to Transfer In/Out of Chair: Contact Guard Exam Const: General: comfortable and no acute distress HENMT: General nose exam: Normal nares present Mouth: Yes moist mucous membranes Eyes: General: appearance normal, both eyes and all related structures Neck: Neck: supple and no JVD Resp: Effort & Inspection: normal respiratory effort Auscultation: clear to auscultation bilaterally Cardio: Rate: regular rate Rhythm: regular rhythm GI: GI Palp: Yes Soft to palpation Auscultation: normal bowel sounds Skin: General skin exam: normal color and no rashes or lesions noted Neuro: Other: patient is awake alert well oriented with mild short-term memory deficit and improving aphasia she is improving in the therapy and her hemoglobin hematocrit has been stable at 10.4 and 34.8 with platelet count of [id number] Extrem: General: normal to inspection Other: 2 small lipomas at the lower part of the right upper arm which are nontender there quite mobile and to not feel like a hematoma or anything of sees nature Psych: Mental Status: mental status grossly normal Objective Data Vital Signs Vital Signs: Vital Signs - 24 hr 07/03/20 14:00 07/03/20 20:46 07/03/20 22:00 Temperature 36.6 C 36.6 C Pulse Rate 92 82 Respiratory Rate 18 18 Blood Pressure 134/55 L 128/53 L Pulse Oximetry 98 96 96 07/04/20 06:00 07/04/20 08:20 Temperature 36.4 C Pulse Rate 85 Respiratory Rate 20 Blood Pressure 128/48 L Pulse Oximetry 94 95 Intake/Output Intake/Output: Intake & Output 07/01/20 07/02/20 07/03/20 07/04/20 23:59 23:59 23:59 23:59 Intake Total 840 720 600 240 Balance 840 720 600 240 Meds/Results Medications: Active Medications Generic Name Dose Route Start Last Admin Trade Name Freq PRN Reason Stop Dose Admin Acetaminophen 650 mg 06/24/20 14:10 07/03/20 20:33 Tylenol Tablet PO 650 mg Q4-6H PRN Administration Mild Pain (1-3) or Fever Albuterol 2 puff 06/22/20 15:34 Proventil Hfa INHALATION QID PRN Wheezing Alprazolam 0.5 mg 06/22/20 15:34 07/03/20 20:33 Xanax PO 0.5 mg BID PRN Administration Anxiety Atorvastatin Calcium 20 mg 06/22/20 21:00 07/03/20 20:34 Lipitor PO 20 mg HS JOSEPH Administration Budesonide/Formoterol Fumarate 2 puff 06/23/20 20:00 07/04/20 08:17 Symbicort 160-4.5 Mcg (*Sp) Inhaler INHALATION 2 puff Q12HRT JOSEPH Administration Diltiazem HCl 30 mg/ Diltiazem 90 mg 06/22/20 17:00 07/04/20 08:37 HCl 60 mg PO 90 mg QID JOSEPH Administration Lactobacillus Acidophilus 1 tablet 06/23/20 09:00 07/04/20 08:36 Lactinex Chewable Tablet PO 1 tablet DAILY JOSEPH Administration (Roflumilast 250 Mcg 250 mcg 06/23/20 09:00 07/04/20 08:37 ) Nonformulary Drug PO 07/23/20 09:01 250 mcg DAILY JOSEPH Administration Pantoprazole Sodium 40 mg 06/23/20 09:00 07/04/20 08:37 Protonix P
[2020-07-04 14:00] VITALS: BP 135/58; PULSE 93; RESP 20; TEMP 36.5; O2SAT 98
[2020-07-04] MEDS: ATORVASTATIN 20 MG TABLET PO (20:08)
[2020-07-04 20:59] VITALS: BP 129/57; PULSE 92; RESP 18; TEMP 36.6; O2SAT 95
[2020-07-05 05:43] VITALS: BP 131/51; PULSE 74; RESP 18; TEMP 36.4; O2SAT 97
[2020-07-05] MEDS: ACIDOPHILUS/BULGARICUS CHEWABLE TABLET 1 TABLET PO (08:40)
[2020-07-05] MEDS: PANTOPRAZOLE 40 MG TABLET PO (08:40)
[2020-07-05] MEDS: dilTIAZem HCL TAB 30 MG, dilTIAZem HCL TAB 60 MG 90 MG PO ×4 (08:41→20:10)
[2020-07-05 09:40] VITALS: O2SAT 96
[2020-07-05] MEDS: ACETAMINOPHEN 325 MG TABLET 650 MG PO (12:06)
[2020-07-05 14:00] VITALS: BP 137/53; PULSE 87; RESP 18; TEMP 36.6; O2SAT 96
[2020-07-05] MEDS: ATORVASTATIN 20 MG TABLET PO (20:10)
[2020-07-05 20:41] VITALS: PULSE 76; O2SAT 96
[2020-07-05 20:48] VITALS: BP 140/57; PULSE 76; RESP 18; TEMP 36.2; O2SAT 96
[2020-07-06 05:00] VITALS: BP 134/59; PULSE 77; RESP 18; TEMP 36.4; O2SAT 98
[2020-07-06 08:42] VITALS: PULSE 74; RESP 18; O2SAT 96
[2020-07-06] MEDS: ACIDOPHILUS/BULGARICUS CHEWABLE TABLET 1 TABLET PO (09:11)
[2020-07-06] MEDS: dilTIAZem HCL TAB 30 MG, dilTIAZem HCL TAB 60 MG 90 MG PO ×4 (09:11→20:12)
[2020-07-06] MEDS: PANTOPRAZOLE 40 MG TABLET PO (09:15)
[2020-07-06] MEDS: ACETAMINOPHEN 325 MG TABLET 650 MG PO ×3 (11:54→22:04)
--- NOTE | 2020-07-06 12:15 | WPDNEURORHBP ---
Subjective Date/time seen: 07/06/20 12:15 70 years old lady with left hemispheric stroke with right hemiparesis though her right upper extremities still flaccid she is showing signs of improvement his involving the physical therapy Review of Systems Review of Systems: All systems reviewed & are unremarkable except as noted in HPI and below Functional Status Ambulation Ability Ability to Ambulate 10 Feet: Contact Guard Ability to Ambulate 50 Feet With 2 Turns: Contact Guard Ability to Ambulate 150 Feet: Contact Guard Ambulation Assistive Devices: Cane Transfers Ability Ability to Transfer In/Out of Chair: Independent Exam Narrative: Exam Narrative: examination reveals her to be awake alert cooperative in no obvious acute distress ear nose throat examination normal with no nasal drainage with membranes are moist head normocephalic with no cranial bruit your nose throat examination normal neck supple with no cervical bruits no thyromegaly no lymphadenopathy eyes are normal with no circumcorneal injection heart regular with no murmur lungs clear to auscultation with no rhonchi or crepitation abdomen is soft with no organomegaly normal bowel sounds nontender skin is clear neurological she is awake alert she does have some mild difficulties in short-term memory but her speech is definitely improving and mentally she is stable Objective Data Vital Signs Vital Signs: Vital Signs - 24 hr 07/05/20 14:00 07/05/20 20:41 07/05/20 20:48 Temperature 36.6 C 36.2 C L Pulse Rate 87 76 76 Respiratory Rate 18 18 Blood Pressure 137/53 L 140/57 L Pulse Oximetry 96 96 96 07/06/20 05:00 07/06/20 08:42 Temperature 36.4 C L Pulse Rate 77 74 Respiratory Rate 18 18 Blood Pressure 134/59 L Pulse Oximetry 98 96 Intake/Output Intake/Output: Intake & Output 07/03/20 07/04/20 07/05/20 07/06/20 23:59 23:59 23:59 23:59 Intake Total 600 720 840 480 Balance 600 720 840 480 Meds/Results Medications: Active Medications Generic Name Dose Route Start Last Admin Trade Name Freq PRN Reason Stop Dose Admin Acetaminophen 650 mg 06/24/20 14:10 07/06/20 11:54 Tylenol Tablet PO 650 mg Q4-6H PRN Administration Mild Pain (1-3) or Fever Albuterol 2 puff 06/22/20 15:34 Proventil Hfa INHALATION QID PRN Wheezing Alprazolam 0.5 mg 06/22/20 15:34 07/03/20 20:33 Xanax PO 0.5 mg BID PRN Administration Anxiety Atorvastatin Calcium 20 mg 06/22/20 21:00 07/05/20 20:10 Lipitor PO 20 mg HS JOSEPH Administration Budesonide/Formoterol Fumarate 2 puff 06/23/20 20:00 07/06/20 08:42 Symbicort 160-4.5 Mcg (*Sp) Inhaler INHALATION 2 puff Q12HRT JOSEPH Administration Diltiazem HCl 30 mg/ Diltiazem 90 mg 06/22/20 17:00 07/06/20 09:11 HCl 60 mg PO 90 mg QID JOSEPH Administration Lactobacillus Acidophilus 1 tablet 06/23/20 09:00 07/06/20 09:11 Lactinex Chewable Tablet PO 1 tablet DAILY JOSEPH Administration (Roflumilast 250 Mcg 250 mcg 06/23/20 09:00 07/06/20 09:16 ) Nonformulary Drug PO 07/23/20 09:01 250 mcg DAILY JOSEPH Administration Pantoprazole Sodium 40 mg 06/23/20 09:00 07/06/20 09:15 Protonix PO 40 mg QAM JOSEPH Administration Tiotropium [place] 1 cap 06/23/20 09:00 07/06/20 08:41 Spiriva INHALATION 1 cap DAILY JOSEPH Administration Radiology Results: ITS Impressions Modified Barium Swallow 07/01/20 15:58 IMPRESSION: Modified esophagram findings as above. Please refer to the speech therapy report for specific recommendations. 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
[2020-07-06 14:00] VITALS: BP 135/57; PULSE 94; RESP 20; TEMP 36.5; O2SAT 98
[2020-07-06] MEDS: ATORVASTATIN 20 MG TABLET PO (20:12)
[2020-07-06 21:50] VITALS: O2SAT 95
[2020-07-06 22:00] VITALS: BP 139/59; PULSE 89; RESP 20; TEMP 36.8; O2SAT 100
[2020-07-06] MEDS: ALPRAZolam 0.5 MG TABLET PO (22:05)
[2020-07-07 05:17] LABS: Basophils Percent Auto 0.3 % (0.2-1.2); Eosinophils Absolute Auto 0.2 K/mm3 (0-0.3); Eosinophils Percent Auto 2.5 % (0-4.4); Hematocrit 29.9 % (37.0-47.0); Hemoglobin 9.1 g/dL (12.0-15.0); Immature Granulocyte Absolute 0.03 K/mm3 (0.00-0.031); Immature Granulocyte Percent A 0.4 % (0-0.5); Lymphocytes Absolute Auto 1.01 K/mm3 (0.9-3.2); Lymphocytes Percent Auto 13.1 % (18.3-44.2); Mean Corpuscular HGB Conc 30.4 g/dl (32-36); Mean Corpuscular Hemoglobin 25.3 pg (26-34); Mean Corpuscular Volume 83.1 fl (80-100); Mean Platelet Volume 11.5 fl (7.4-10.4); Monocytes Absolute Auto 0.6 K/mm3 (0.1-0.6); Monocytes Percent Auto 7.1 % (2.6-8.5); Neutrophils Absolute Auto 5.9 K/mm3 (1.3-6.7); Neutrophils Percent Auto 76.6 % (45.5-73.1); Platelet Count Result 391 k/mm3 (150-375); Red Cell Distribution Width 17.2 % (11.5-14.5); White Blood Count 7.7 K/mm3 (4.5-10.0)
[2020-07-07 05:34] LABS: Anion Gap 4 mmol/L (8-16); Blood Urea Nitrogen 13 mg/dL (7-17); Calcium 8.6 mg/dL (8.4-10.2); Carbon Dioxide 30 mmol/L (22-30); Chloride 105 mmol/L (98-107); Estimated CRCL calculation 64 ml/min; Estimated Glomerular Filt Rate > 60; Glucose 97 mg/dL (65-105); Potassium 3.4 mmol/L (3.4-5.0); Sodium 139 mmol/L (137-145)
[2020-07-07 06:00] VITALS: BP 132/55; PULSE 74; RESP 18; TEMP 36.7; O2SAT 99
[2020-07-07] MEDS: dilTIAZem HCL TAB 30 MG, dilTIAZem HCL TAB 60 MG 90 MG PO ×4 (09:00→20:08)
[2020-07-07] MEDS: PANTOPRAZOLE 40 MG TABLET PO (09:00)
[2020-07-07] MEDS: ACIDOPHILUS/BULGARICUS CHEWABLE TABLET 1 TABLET PO (09:00)
--- NOTE | 2020-07-07 10:14 | WPDNEURORHBP ---
Subjective Date/time seen: 07/07/20 10:14 70 years old lady with right hemiparesis secondary to left hemispheric stroke involved the physical therapy and occupational therapy and is able to ambulate 50ft 3 2 turns and up to 150ft with contact guard has no specific complaints Review of Systems Review of Systems: All systems reviewed & are unremarkable except as noted in HPI and below Functional Status Ambulation Ability Ability to Ambulate 10 Feet: Standby Assistance Ability to Ambulate 50 Feet With 2 Turns: Contact Guard Ability to Ambulate 150 Feet: Contact Guard Ambulation Assistive Devices: Cane Transfers Ability Ability to Transfer In/Out of Chair: Independent Exam Narrative: Exam Narrative: examination reveals her to be awake alert has no specific complaints no obvious distress ear nose throat examination is normal with no nasal drainage throat examination is clear neck normal with no cervical bruit normal range of motion heart regular with no murmur lungs clear to auscultation with no crepitations or rhonchi abdomen normal with non tenderness bowel sounds neurological examination reveals her to be with showed mild short-term memory deficit and improving speech Objective Data Vital Signs Vital Signs: Vital Signs - 24 hr 07/06/20 14:00 07/06/20 21:50 07/06/20 22:00 Temperature 36.5 C 36.8 C Pulse Rate 94 89 Respiratory Rate 20 20 Blood Pressure 135/57 L 139/59 L Pulse Oximetry 98 95 100 07/07/20 06:00 Temperature 36.7 C Pulse Rate 74 Respiratory Rate 18 Blood Pressure 132/55 L Pulse Oximetry 99 Intake/Output Intake/Output: Intake & Output 07/04/20 07/05/20 07/06/20 07/07/20 23:59 23:59 23:59 23:59 Intake Total 143 025 2672 480 Balance 059 887 7310 480 Meds/Results Medications: Active Medications Generic Name Dose Route Start Last Admin Trade Name Freq PRN Reason Stop Dose Admin Acetaminophen 650 mg 06/24/20 14:10 07/06/20 22:04 Tylenol Tablet PO 650 mg Q4-6H PRN Administration Mild Pain (1-3) or Fever Albuterol 2 puff 06/22/20 15:34 Proventil Hfa INHALATION QID PRN Wheezing Alprazolam 0.5 mg 06/22/20 15:34 07/06/20 22:05 Xanax PO 0.5 mg BID PRN Administration Anxiety Atorvastatin Calcium 20 mg 06/22/20 21:00 07/06/20 20:12 Lipitor PO 20 mg HS JOSEPH Administration Budesonide/Formoterol Fumarate 2 puff 06/23/20 20:00 07/06/20 21:45 Symbicort 160-4.5 Mcg (*Sp) Inhaler INHALATION 2 puff Q12HRT JOSEPH Administration Diltiazem HCl 30 mg/ Diltiazem 90 mg 06/22/20 17:00 07/07/20 09:00 HCl 60 mg PO 90 mg QID JOSEPH Administration Lactobacillus Acidophilus 1 tablet 06/23/20 09:00 07/07/20 09:00 Lactinex Chewable Tablet PO 1 tablet DAILY JOSEPH Administration (Roflumilast 250 Mcg 250 mcg 06/23/20 09:00 07/07/20 09:00 ) Nonformulary Drug PO 07/23/20 09:01 250 mcg DAILY JOSEPH Administration Pantoprazole Sodium 40 mg 06/23/20 09:00 07/07/20 09:00 Protonix PO 40 mg QAM JOSEPH Administration Tiotropium [place] 1 cap 06/23/20 09:00 07/06/20 08:41 Spiriva INHALATION 1 cap DAILY JOSEPH Administration Radiology Results: ITS Impressions Modified Barium Swallow 07/01/20 15:58 IMPRESSION: Modified esophagram findings as above. Please refer to the speech therapy report for specific recommendations. Labs Labs: Laboratory Results - last 24 hr 07/07/20 07/07/20 05:08 05:08 WBC 7.7 RBC 3.60 L Hgb 9.1 L Hct 29.9 L MCV 83.1 MCH 25.3 L MCHC 30.4 L RDW 17.2 H Plt Count 391 H MPV 11.5 H Immature Gran % (Auto) 0.4 Neut % (Auto) 76.6 H Lymph % (Auto) 13.1 L [place] % (Auto) 7.1 Eos % (Auto) 2.5 Baso % (Auto) 0.3 Lymph # (Auto) 1.01 [place] # (Auto) 0.6 Eos # (Auto) 0.2 Baso # (Auto) 0.0 Abs Immat Gran (auto) 0.03 Absolute Neuts (auto) 5.9 Absolute Nucleated RBC 0.0 Nucleated RBC % 0.0 Sodium 139 Potassium 3.4 Chloride
--- NOTE | 2020-07-07 10:38 | PCOTNOTE ---
Ms. Werner was evaluated for a tub transfer bench on 07/07/10 by this occupational therapist. The tub transfer bench will resolve that patient?s limitations in independence with tub transfers and will be used for all bathing within the home. The patient is unable to step over edge of tub safely due to right weakness and impaired balance following CVA and is unable to tolerate standing while maintaining balance for completion of bathing. The patient is unable to consistently ambulate to bathroom due to weakness. The patient can safely use the tub transfer bench. The patient's daughter in law has participated in family training and exhibits good understanding of safety with assisting patient with use of tub transfer bench. The tub transfer bench will decrease caregiver burden and allow for safety with care of patient in her home. The tub transfer bench are required due to patients? history of CVA with right sided weakness. I agree with and certify that the above recommendation is medically necessary. Referring Physician Date
--- NOTE | 2020-07-07 12:11 | PCDIET ---
Nutrition Follow-Up Complete: Nutrition Diagnosis: Difficulty swallowing related to CVA as evidenced by need for pureed diet, level 2 liquids. Nutrition Goal: Patient to consume 75% of meals or greater. Goal met. Patient consuming 75-100% of most meals on soft and bite size diet with level 2 liquids. Order for [employer]rive [employer] Cream prn which is appropriate. Patient denies concerns at this time. Last recorded weight is 47.627 kg. Recommend obtaining new weight. Bowel Motility: Last documented BM on 07/06/20. Labs Reviewed: Hgb (9.1), Hct (29.9), Cr (0.5) Meds Noted: Albuterol, Symbicort, Lactinex, Protonix Additional Notes: No documented skin breakdown. Will continue to monitor with same goal. Nutrition Monitoring and Evaluation: Follow up in 7 days.
[2020-07-07 14:00] VITALS: BP 144/59; PULSE 92; RESP 18; TEMP 36.6; O2SAT 98
--- NOTE | 2020-07-07 14:17 | PCRCNOTE ---
patient unavailable to give inhalers was not in her room.
[2020-07-07] MEDS: ATORVASTATIN 20 MG TABLET PO (20:08)
[2020-07-07 20:20] VITALS: PULSE 89; RESP 22; O2SAT 95
[2020-07-07 20:21] VITALS: BP 137/57; PULSE 92; RESP 20; TEMP 36.6; O2SAT 98
[2020-07-07] MEDS: ALBUTEROL SULFATE (*SP) AEROSOL 1 PUFF 2 PUFF INHALATION (20:28)
[2020-07-07 20:29] VITALS: PULSE 89; RESP 22; O2SAT 95
[2020-07-08 05:56] VITALS: BP 139/62; PULSE 74; RESP 18; TEMP 36.6; O2SAT 98
--- NOTE | 2020-07-08 07:55 | PCPTNOTE ---
Maryjane Werner was evaluated for a straight cane on 07/08/2020 by this physical therapist. The straight cane will resolve patient's mobility limitations and will be used for ADL's within the home. The patient can safely use the straight cane. ?The straight cane will resolve the patient?s mobility deficits, including impaired balance and functional activity tolerance. Anya Flores, PT, DPT
[2020-07-08 08:33] VITALS: O2SAT 99
[2020-07-08] MEDS: dilTIAZem HCL TAB 30 MG, dilTIAZem HCL TAB 60 MG 90 MG PO ×4 (08:51→20:28)
[2020-07-08] MEDS: PANTOPRAZOLE 40 MG TABLET PO (08:51)
[2020-07-08] MEDS: ACIDOPHILUS/BULGARICUS CHEWABLE TABLET 1 TABLET PO (08:51)
--- NOTE | 2020-07-08 10:54 | WPDNEURORHBP ---
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 here because of left hemispheric stroke aphasia and right-sided hemiparesis she has done very well in over rehab denies any headache nausea vomiting chest pain shortness of breath fever chills sore throat she is a slated for discharge tomorrow with home health PT OT and speech Review of Systems Review of Systems: All systems reviewed & are unremarkable except as noted in HPI and below Functional Status Ambulation Ability Ability to Ambulate 10 Feet: Standby Assistance Ability to Ambulate 50 Feet With 2 Turns: Contact Guard Ability to Ambulate 150 Feet: Contact Guard Ambulation Assistive Devices: Cane Transfers Ability Ability to Transfer In/Out of Chair: Independent Exam Const: General: comfortable and no acute distress HENMT: General nose exam: Normal nares present Mouth: Yes moist mucous membranes Eyes: General: appearance normal, both eyes and all related structures Neck: Neck: supple and no JVD Resp: Effort & Inspection: normal respiratory effort Auscultation: clear to auscultation bilaterally Cardio: Rate: regular rate Rhythm: regular rhythm GI: GI Palp: Yes Soft to palpation Auscultation: normal bowel sounds Skin: General skin exam: normal color and no rashes or lesions noted Neuro: Other: patient is awake alert well oriented her aphasia has significantly improved she is following all commands and able to speak in fluent sentences with occasional breaks air and there in the occupational therapy the patient needs minimal assist which is much better likewise in the physical therapy the patient is supervision on and therapies recommending a cane Extrem: General: normal to inspection Psych: Mental Status: mental status grossly normal Objective Data Vital Signs Vital Signs: Vital Signs - 24 hr 07/07/20 14:00 07/07/20 20:20 07/07/20 20:21 Temperature 36.6 C 36.6 C Pulse Rate 92 89 92 Respiratory Rate 18 22 H 20 Blood Pressure 144/59 H 137/57 L Pulse Oximetry 98 95 98 07/07/20 20:29 07/08/20 05:56 07/08/20 08:33 Temperature 36.6 C Pulse Rate 89 74 Respiratory Rate 22 H 18 Blood Pressure 139/62 Pulse Oximetry 95 98 99 Intake/Output Intake/Output: Intake & Output 07/05/20 07/06/20 07/07/20 07/08/20 23:59 23:59 23:59 23:59 Intake Total 840 1080 960 240 Balance 840 1080 960 240 Meds/Results Medications: Active Medications Generic Name Dose Route Start Last Admin Trade Name Freq PRN Reason Stop Dose Admin Acetaminophen 650 mg 06/24/20 14:10 07/06/20 22:04 Tylenol Tablet PO 650 mg Q4-6H PRN Administration Mild Pain (1-3) or Fever Albuterol 2 puff 06/22/20 15:34 07/07/20 20:28 Proventil Hfa INHALATION 2 puff QID PRN Administration Wheezing Alprazolam 0.5 mg 06/22/20 15:34 07/06/20 22:05 Xanax PO 0.5 mg BID PRN Administration Anxiety Atorvastatin Calcium 20 mg 06/22/20 21:00 07/07/20 20:08 Lipitor PO 20 mg HS JOSEPH Administration Budesonide/Formoterol Fumarate 2 puff 06/23/20 20:00 07/08/20 08:31 Symbicort 160-4.5 Mcg (*Sp) Inhaler INHALATION 2 puff Q12HRT JOSEPH Administration Diltiazem HCl 30 mg/ Diltiazem 90 mg 06/22/20 17:00 07/08/20 08:51 HCl 60 mg PO 90 mg QID JOSEPH Administration Lactobacillus Acidophilus 1 tablet 06/23/20 09:00 07/08/20 08:51 Lactinex Chewable Tablet PO 1 tablet DAILY JOSEPH Administration (Roflumilast 250 Mcg 250 mcg 06/23/20 09:00 07/08/20 08:51 ) Nonformulary Drug PO 07/23/20 09:01 250 mcg DAILY JOSEPH Administration Pantoprazole Sodium 40 mg 06/23/20 09:00 07/08/20 08:51 Protonix PO 40 mg QAM JOSEPH Administration Tiotropium [place] 1 cap 06/23/20 09:00 07/07/20 08:45 Spiriva INHALATION Not Given DAILY [facility] Radiology Results: ITS Impressions Modified Barium Swallow 07/01/20 15:58 IMPRESSION: Modified
[2020-07-08 14:00] VITALS: BP 142/58; PULSE 86; RESP 18; TEMP 36.2; O2SAT 97
[2020-07-08] MEDS: ATORVASTATIN 20 MG TABLET PO (20:27)
[2020-07-08] MEDS: ALBUTEROL SULFATE (*SP) AEROSOL 1 PUFF 2 PUFF INHALATION (20:52)
[2020-07-08 20:55] VITALS: PULSE 78; RESP 18; O2SAT 96
[2020-07-08 22:00] VITALS: BP 132/77; PULSE 88; RESP 20; TEMP 36.6; O2SAT 98
[2020-07-09 06:00] VITALS: BP 125/50; PULSE 80; RESP 20; TEMP 36.6; O2SAT 98
[2020-07-09] MEDS: ACIDOPHILUS/BULGARICUS CHEWABLE TABLET 1 TABLET PO (08:56)
[2020-07-09] MEDS: dilTIAZem HCL TAB 30 MG, dilTIAZem HCL TAB 60 MG 90 MG PO ×2 (08:56→12:13)
[2020-07-09] MEDS: PANTOPRAZOLE 40 MG TABLET PO (08:56)
[2020-07-09 09:03] VITALS: O2SAT 96
--- NOTE | 2020-07-09 10:37 | WPDNEURORHBP ---
Subjective Date/time seen: 07/09/20 10:37 Interval history: this 70-year-old woman is here after having a left hemispheric stroke with significantly improved aphasia and right-sided hemiparesis she is walking excellent the right upper extremity is the 1 which is lagging behind in the improvement the patient also has underlying AV malformation of the gastrointestinal tract which precludes her being on any kind of anticoagulation and the family is aware of it the patient is going to be discharged today she denies any headache nausea vomiting chest pain shortness of breath fever chills sore throat hemoglobin hematocrit has been stable in the past several days Review of Systems Review of Systems: All systems reviewed & are unremarkable except as noted in HPI and below Functional Status Ambulation Ability Ability to Ambulate 10 Feet: Independent Ability to Ambulate 50 Feet With 2 Turns: Independent Ability to Ambulate 150 Feet: Standby Assistance Ambulation Assistive Devices: Cane Transfers Ability Ability to Transfer In/Out of Chair: Independent Exam Const: General: comfortable and no acute distress HENMT: General nose exam: Normal nares present Mouth: Yes moist mucous membranes Eyes: General: appearance normal, both eyes and all related structures Neck: Neck: supple and no JVD Resp: Effort & Inspection: normal respiratory effort Auscultation: clear to auscultation bilaterally Cardio: Rate: regular rate Rhythm: regular rhythm GI: GI Palp: Yes Soft to palpation Auscultation: normal bowel sounds Skin: General skin exam: normal color and no rashes or lesions noted Neuro: Other: patient is awake alert well oriented and quite communicative with significantly improved improved neurological deficit including the aphasia and right-sided hemiparesis Extrem: General: normal to inspection Psych: Mental Status: mental status grossly normal Objective Data Vital Signs Vital Signs: Vital Signs - 24 hr 07/08/20 14:00 07/08/20 20:55 07/08/20 22:00 Temperature 36.2 C L 36.6 C Pulse Rate 86 78 88 Respiratory Rate 18 18 20 Blood Pressure 142/58 H 132/77 Pulse Oximetry 97 96 98 07/09/20 06:00 07/09/20 09:03 Temperature 36.6 C Pulse Rate 80 Respiratory Rate 20 Blood Pressure 125/50 L Pulse Oximetry 98 96 Intake/Output Intake/Output: Intake & Output 07/06/20 07/07/20 07/08/20 07/09/20 23:59 23:59 23:59 23:59 Intake Total 1080 960 720 360 Balance 1080 960 720 360 Meds/Results Medications: Active Medications Generic Name Dose Route Start Last Admin Trade Name Freq PRN Reason Stop Dose Admin Acetaminophen 650 mg 06/24/20 14:10 07/06/20 22:04 Tylenol Tablet PO 650 mg Q4-6H PRN Administration Mild Pain (1-3) or Fever Albuterol 2 puff 06/22/20 15:34 07/08/20 20:52 Proventil Hfa INHALATION 2 puff QID PRN Administration Wheezing Alprazolam 0.5 mg 06/22/20 15:34 07/06/20 22:05 Xanax PO 0.5 mg BID PRN Administration Anxiety Atorvastatin Calcium 20 mg 06/22/20 21:00 07/08/20 20:27 Lipitor PO 20 mg HS JOSEPH Administration Budesonide/Formoterol Fumarate 2 puff 06/23/20 20:00 07/09/20 09:01 Symbicort 160-4.5 Mcg (*Sp) Inhaler INHALATION 2 puff Q12HRT JOSEPH Administration Diltiazem HCl 30 mg/ Diltiazem 90 mg 06/22/20 17:00 07/09/20 08:56 HCl 60 mg PO 90 mg QID JOSEPH Administration Hydrocortisone 1 applic 07/08/20 21:00 Hydrocortisone 1% Cream TOPICAL Q12HR PRN Itching Lactobacillus Acidophilus 1 tablet 06/23/20 09:00 07/09/20 08:56 Lactinex Chewable Tablet PO 1 tablet DAILY JOSEPH Administration (Roflumilast 250 Mcg 250 mcg 06/23/20 09:00 07/09/20 08:56 ) Nonformulary Drug PO 07/23/20 09:01 250 mcg DAILY JOSEPH Administration Pantoprazole Sodium 40 mg 06/23/20 09:00 07/09/20 08:56 Protonix PO 40 mg QAM JOSEPH Administration Tiotropium [place] 1 cap 06/23/20 09:00 07/09/20 09:01 S
[2020-07-09] MEDS: ACETAMINOPHEN 325 MG TABLET 650 MG PO (11:24)
[2020-07-09 14:00] VITALS: BP 135/62; PULSE 86; RESP 16; TEMP 36.8; O2SAT 97
--- NOTE | 2020-07-12 14:29 | PM.DS ---
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(s): G81.91 - Hemiplegia, unspecified affecting right dominant side Status: Acute (5) Left acute arterial ischemic stroke, MCA (middle cerebral artery): Code(s): I63.512 - Cerebral infarction due to unspecified occlusion or stenosis of left middle cerebral artery Status: Acute DS: Summary Hospital Course Reason for hospitalization: this 70-year-old woman was admitted due to stroke of left cerebral hemisphere with aphasia and right-sided hemiparesis from which she improved she received medical treatment for underlying medical issues mentioned as above PT OT and speech and did very well and was discharged home with home health or follow no falls were recorded Hospital Course: the functionally independent measures were as follows eating setup, oral hygiene setup, toileting independent, bathing supervision, upper body dressing partial assistance, lower body dressing supervision, footwear rolling in bed sitting to lying lying to sitting sit to stand chair transfers all independent, toilet transfers supervision, car transfers independent walking 10 feet independent walking 50 feet with 2 turns independent walking 150 feet independent, walking 10 feet uneven surfaces supervision, Shruti or step supervision, 4 steps supervision, 12 steps supervision, picking of objects supervision, wheelchair 50 feet independent, which 150 feet independent. Time Spent with Patient Time attestation: Total time spent providing and/or coordinating discharge services: Exam Const: General: no acute distress and uncomfortable HENMT: General nose exam: Normal nares present Mouth: Yes dry mucous membranes Eyes: General: appearance normal, both eyes and all related structures Neck: Neck: supple and no JVD Resp: Effort & Inspection: normal respiratory effort Auscultation: clear to auscultation bilaterally Cardio: Rate: regular rate Rhythm: regular rhythm GI: GI Palp: Yes Soft to palpation Auscultation: normal bowel sounds Skin: General skin exam: normal color and no rashes or lesions noted Neuro: Other: Patient's aphasia and right-sided hemiparesis significantly improved Extrem: General: normal to inspection Psych: Mental Status: mental status grossly normal Discharge Plan Discharge Attending physician on discharge: Jude Jacobo Consulting providers: Slick,Diogenes Bolden Discharging Clinician: Jude Jacobo Anticipated Discharge Date/Time: 07/09/20 10:41 Patient Disposition: Home Health Service Activity: may shower and no driving Diet: as tolerated Discharge Instructions: Per Care Coordination: [facility] Health services have been arranged through [employer] at [phone]. [facility] at [phone]. Patient Instructions: Antibiotic Form, Stroke (DC) Stand Alone Forms: General Discharge Information Follow-up/Referrals: Dr. Emmanuel Perera, Dr. Bangura, or Dr. Rojas [Other] (Follow-up in 4-8 weeks) [facility] [Other] (To follow-up for henriquez catheter/urinary retention upon discharge from rehab.) Discharge Medications: New acetaminophen [Mapap (acetaminophen)] 325 mg Tablet 650 mg PO Q4-6H PRN (Reason: Mild Pain (1-3) Or Fever) Qty: 0 RF: 0 hydrocortisone 1 % Cream 1 applic topical Q12HR PRN (Reason: Itching) Qty: 1 RF: 0 diltiazem HCl 90 mg Tablet 90 mg PO QID Qty: 120 RF: 0 Continued Lac
== END 2020-07-09 16:00 | disposition home health service (06) | DRG 56 ==
PROVIDERS: Admitting Provider Psychiatry & Neurology Neurology; Visit Provider Psychiatry & Neurology Neurology
DX: I69.351 Hemiplegia and hemiparesis following cerebral infarction affecting right dominant side (principal); Q39.4 Esophageal web; D80.1 Nonfamilial hypogammaglobulinemia; I69.398 Other sequelae of cerebral infarction; I69.322 Dysarthria following cerebral infarction; I69.320 Aphasia following cerebral infarction; I69.392 Facial weakness following cerebral infarction; H53.40 Unspecified visual field defects; R13.10 Dysphagia, unspecified; D17.21 Benign lipomatous neoplasm of skin and subcutaneous tissue of right arm; D50.9 Iron deficiency anemia, unspecified; E78.5 Hyperlipidemia, unspecified; I10 Essential (primary) hypertension; J44.9 Chronic obstructive pulmonary disease, unspecified; K55.20 Angiodysplasia of colon without hemorrhage; Z87.891 Personal history of nicotine dependence
CPT/HCPCS: 36415; 36430; 80048; 80061; 81001; 85014; 85018; 85025; 86644; 86850; 86900; 86901; 86923; 92507; 92523; 92526; 92611; 94640; 97110; 97112; 97116; 97162; 97166; 97530; 97535; 97542; A9270; J7050; P9016